=== PATIENT | female | born 1960 | race American Indian/Alaskan Native ===

== ENCOUNTER 2016-10-25 00:18 | Emergency (ER) | payer BC ==
[2016-10-25 01:41] LABS: Basophils % (Auto) 0.4 % (0.0-1.8); Eosinophils % (Auto) 1.2 % (0.0-4.3); Hematocrit 39.2 % (30.3-42.9); Hemoglobin 12.7 gm/dl (10.1-14.3); Mean Corpuscular HGB Conc 32 % (30-34); Mean Corpuscular Hemoglobin 28 pg (28-32); Mean Corpuscular Volume 87 fl (79-97); Platelet Count 195 K/mm3 (140-440); Red Blood Count 4.52 M/mm3 (3.65-5.03); White Blood Count 7.5 K/mm3 (4.5-11.0)
[2016-10-25 01:50] LABS: Anion Gap 18 mmol/L; BUN/Creatinine Ratio 24.44; Blood Urea Nitrogen 22 mg/dL (7-17); Calcium 8.8 mg/dL (8.4-10.2); Carbon Dioxide 23 mmol/L (22-30); Glucose 97 mg/dL (65-100); Potassium 3.7 mmol/L (3.6-5.0); Sodium 136 mmol/L (137-145)
[2016-10-25 03:34] VITALS: BP 131/82
== END 2016-10-25 03:32 | disposition left against medical advice (07) ==
LOC: ED 00:18
DX: R07.9 Chest pain, unspecified (principal); I10 Essential (primary) hypertension; E78.5 Hyperlipidemia, unspecified; Z53.21 Procedure and treatment not carried out due to patient leaving prior to being seen by health care provider
CPT/HCPCS: 36415; 80048; 84484; 85025; 93005; 93010

== ENCOUNTER 2019-09-12 19:39 | Emergency (ER) | payer SELFPAY ==
--- NOTE | 2019-09-12 20:24 | XRay Report ---
CHEST 2 VIEWS INDICATION / CLINICAL INFORMATION: Chest Pain. COMPARISON: 04/30/2010 FINDINGS: SUPPORT DEVICES: None. HEART / MEDIASTINUM: No significant abnormality. LUNGS / PLEURA: No significant pulmonary or pleural abnormality. No pneumothorax. ADDITIONAL FINDINGS: No significant additional findings. IMPRESSION: 1. No acute findings. Signer Name: Werner Hilliard MD Signed: 09/12/2019 8:19 PM Workstation Name: [id number]
[2019-09-12 20:47] LABS: Basophils # (Auto) 0.1 K/mm3 (0.0-0.1); Eosinophils # (Auto) 0.3 K/mm3 (0.0-0.4); Eosinophils % (Auto) 5.3 % (0.0-4.3); Hematocrit 39.1 % (30.3-42.9); Hemoglobin 12.8 gm/dl (10.1-14.3); Lymphocytes # (Auto) 2.9 K/mm3 (1.2-5.4); Lymphocytes % (Auto) 47.5 % (13.4-35.0); Mean Corpuscular HGB Conc 33 % (30-34); Mean Corpuscular Volume 87 fl (79-97); Monocytes # (Auto) 0.3 K/mm3 (0.0-0.8); Monocytes % (Auto) 4.6 % (0.0-7.3); Platelet Count 281 K/mm3 (140-440); Red Blood Count 4.49 M/mm3 (3.65-5.03); Red Cell Distribution Width 14.8 % (13.2-15.2)
[2019-09-12 21:39] LABS: BUN/Creatinine Ratio 21; Blood Urea Nitrogen 19 mg/dL (7-17); Calcium 9.2 mg/dL (8.4-10.2); Hemolysis Index 37
[2019-09-13] MEDS ORDERED: ALUM-MAG HYDROXIDE-SIMETHICONE 200-200-20MG/5ML ORAL LIQD 30 ML PO ONE (00:17)
[2019-09-13] MEDS ORDERED: ASPIRIN 325 MG TAB PO ONE (00:17)
[2019-09-13] MEDS ORDERED: FAMOTIDINE 20 MG TAB PO ONE (00:17)
[2019-09-13] MEDS ORDERED: LIDOCAINE VISCOUS 2% 15 ML ORAL LIQD PO ONE (00:18)
--- NOTE | 2019-09-13 01:37 | Emergency Department Report ---
ED Chest Pain HPI - General Chief Complaint: Chest Pain Stated Complaint: CHEST/NECK/RT SHOULDER PAIN Source: patient Mode of arrival: Ambulatory Limitations: No Limitations - History of Present Illness Initial Comments: Patient is a 59-year-old -[place] female with no past medical history except hypertension, and who does not smoke cigarettes, does not drink alcohol or use illegal drugs presents to the ED with acute onset persistent epigastric pain that radiates to the substernal area and to her throat with a burning sensation persistently for the last 4 days. Patient states that the pain and the discomfort is worse with food or when she lays down to sleep at night. Patient states that the pain is pressure-like with a burning sensation and discomfort that radiates with a burning sensation from the epigastric area to her substernal chest and to her throat. Patient denies dizziness, fever, chills, cough, shortness of breath, nausea and vomiting, diarrhea, headache, neck pain, change in vision, syncope, palpitations or traumatic injury and heavy lifting. MD Complaint: chest pain -: Sudden, days(s) (4) Onset: after eating, awoke with symptoms Pain Location: substernal, epigastric Pain Radiation: none Severity: moderate Severity scale (0 -10): 4 Quality: pressure Consistency: constant Improves With: nothing Worsens With: eating re: denies: nausea, vomting, diaphoresis, dyspnea, sense of impending doom Other Symptoms: denies: cough, fever, syncope, rash, acid taste in mouth, leg swelling, palpitations, burping Treatments Prior to Arrival: none Aspirin use within the Past 7 Days: (1) Yes - Related Data On Oral Contraceptives: No Previous Rx's Medication Instructions Recorded Last Taken Type HYDROcodone/APAP 10-325 [[place] 1 each PO Q6HR PRN #20 tablet 12/10/13 Unknown Rx 10-325 mg TAB] Sulfamethoxazole/Trimethoprim 1 each PO Q12H #20 tablet 12/10/13 Unknown Rx [Bactrim Ds] Famotidine [Pepcid] 20 mg PO Q12H #60 tablet 09/13/19 Unknown Rx Ondansetron [Zofran Odt] 4 mg PO Q6HR PRN #15 tab.rapdis 09/13/19 Unknown Rx Allergies Allergy/AdvReac Type Severity Reaction Status Date / Time No Known Allergies Allergy Unverified 12/10/13 08:56 Heart Score - HEART Score History: Slightly suspicious EKG: Normal Age: 45-65 Risk factors: 1-2 risk factors Troponin: < normal limit HEART Score: 2 ED Review of Systems ROS: Stated complaint: CHEST/NECK/RT SHOULDER PAIN Other details as noted in HPI Constitutional: denies: chills, fever Eyes: denies: eye pain, eye discharge, vision change ENT: denies: ear pain, throat pain Respiratory: denies: cough, shortness of breath, wheezing Cardiovascular: chest pain (substernal). denies: palpitations Endocrine: no symptoms reported Gastrointestinal: abdominal pain (epigastric). denies: nausea, vomiting, diarrhea Genitourinary: denies: urgency, dysuria, frequency, hematuria, discharge Musculoskeletal: denies: back pain, joint swelling, arthralgia Skin: denies: rash, lesions Neurological: denies: headache, weakness, paresthesias Psychiatric: denies: anxiety, depression Hematological/Lymphatic: denies: easy bleeding, easy bruising ED Past Medical Hx - Past Medical History Previous Medical History?: Yes Hx Hypertension: Yes Additional medical history: Hyperlipidemia - Surgical History Additional Surgical History: tubal ligation, partial hysterectomy - Social History Smoking Status: Never Smoker Substance Use Type: None - Medications Home Medications: Home Medications Medication Instructions Recorded Confirmed Last Taken Type HYDROcodone/APAP 10-325 [[place] 1 each PO Q6HR PRN #20 tablet 12/10/13 Unknown Rx 10-325 mg TAB] Sulfamethoxazole/Trimethoprim 1 each PO Q12H #20 tablet 12/10/13 Unknown Rx [Bactrim Ds] Famotidine [Pepcid] 20 mg PO Q12H #60 tablet 09/13/19 Unknown Rx Ondansetron [Zofran Odt] 4 mg PO Q6HR PRN #15 tab.rapdis 09/13/19 Unknown Rx ED Physical Exam - General Limitations: No Limitations General appearance: alert, in no apparent distress - Head Head exam: Present: atraumatic, normocephalic, normal inspection - Eye Eye exam: Present: normal appearance, PERRL, EOMI Pupils: Present: normal accommodation - ENT ENT exam: Present: normal exam, normal orophraynx, mucous membranes moist, TM's normal bilaterally, normal external ear exam - Neck Neck exam: Present: normal inspection, full ROM. Absent: tenderness, lymphadenopathy - Respiratory Respiratory exam: Present: normal lung sounds bilaterally. Absent: respiratory distress, wheezes, rales, chest wall tenderness, accessory muscle use, prolonged expiratory - Cardiovascular Cardiovascular Exam: Present: regular rate, normal rhythm, normal heart sounds. Absent: systolic murmur, diastolic murmur, rubs, gallop - GI/Abdominal GI/Abdominal exam: Present: soft, normal bowel sounds. Absent: tenderness, guarding, hyperactive bowel sounds, hypoactive bowel sounds, mass - Extremities Exam Extremities exam: Present: normal inspection, full ROM, normal capillary refill - Back Exam Back exam: Present: normal inspection, full ROM. Absent: tenderness, CVA tenderness (R), muscle spasm, paraspinal tenderness - Neurological Exam Neurological exam: Present: alert, oriented X3, CN II-XII intact, normal gait, reflexes normal - Psychiatric Psychiatric exam: Present: normal affect, normal mood - Skin Skin exam: Present: warm, dry, intact, normal color. Absent: rash ED Course Vital Signs 09/12/19 20:00 Temperature 98.1 F Pulse Rate 78 Respiratory 18 Rate Blood Pressure 112/74 O2 Sat by Pulse 99 Oximetry RUDOLPH score - Rudolph Score Age > 65: (0) No Aspirin use within the Past 7 Days: (0) No 3 or more CAD Risk Factors: (0) No 2 or more Angina events in past 24 hrs: (0) No Known CAD with more than 50% Stenosis: (0) No Elevated Cardiac Markers: (0) No ST Deviation Greater than 0.5mm: (0) No RUDOLPH Score: 0 ED Medical Decision Making - Lab Data Result diagrams: 09/12/19 20:29 09/12/19 20:29 - EKG Data EKG shows normal: sinus rhythm Rate: normal - EKG Data Interpretation: normal EKG 09/13/19 02:06 The EKG shows normal sinus rhythm with a ventricular rate of [address] or T wave abnormalities. - Radiology Data Radiology results: report reviewed, image reviewed Chest x-ray shows no acute cardiopulmonary abnormalities or pneumonitis - Medical Decision Making This is a 59-year-old female with a history of hypertension who presented to the ED with complaint of acute onset epigastric pain that radiates to the substernal chest and throat for the last 4 days. In the ED, patient is alert and oriented x3 and is not in distress with normal vital signs. The patient was treated in the ED with GI cocktail, Pepcid and aspirin. The EKG shows normal sinus rhythm with ventricular rate of 79 beats per minute and no ST or T wave abnormalities. Chest x-ray shows no acute cardiopulmonary abnormalities or pneumonitis. All lab test results were reviewed and are all nonactionable including initial and 2-hour troponin levels. Based on the patient's history and physical exam findings, the patient's heart score is 2 and is PERC negative per Wells criteria. On reevaluation, patient's pain is well controlled medications. The patient symptoms are likely due to GERD complications causing the chest wall discomfort with a burning sensation and also worsening with food intake. Other differential diagnosis were considered including PE, coronary artery disease, pneumonia, bronchitis, gastritis, gastroenteritis, and neoplasm. Patient was discharged home on antacids and antiemetics and was advised to follow-up with her primary care physician in 5 to 7 days for reevaluation or return to the ED immediately if symptoms get worse. - Differential Diagnosis CAD; Pneumonia; Bronchitis; GERD; Gastritis; Gastroenteritis; Neoplasm Critical care attestation.: If time is entered above; I have spent that time in minutes in the direct care of this critically ill patient, excluding procedure time. ED Disposition Clinical Impression: Substernal chest pain, Acute epigastric pain GERD (gastroesophageal reflux disease) Qualifiers: Esophagitis presence: without esophagitis Qualified Code(s): K21.9 - Gastro- esophageal reflux disease without esophagitis Disposition: - TO HOME OR SELFCARE Is pt being admited?: No Does the pt Need Aspirin: No Condition: Stable Instructions: Chest Pain (ED), Gastroesophageal Reflux Disease (ED) Additional Instructions: All your lab test results are unremarkable including EKG and chest x-ray. Your symptoms are likely due to GERD or acid reflux. Therefore take medications with food, drink plenty of fluids and follow-up with your primary care physician in 3 to 5 days for reevaluation. Return to the ED immediately if symptoms get worse. Prescriptions: Famotidine [Pepcid] 20 mg PO Q12H #60 tablet Ondansetron [Zofran Odt] 4 mg PO Q6HR PRN #15 tab.rapdis PRN Reason: Nausea Referrals: OLMAN PHAN MD [Staff Physician] - 3-5 Days Time of Disposition: 01:38 Print Language: GUINEAN
[2019-09-13 02:27] VITALS: BP 117/63
== END 2019-09-13 02:26 | disposition home or self-care (01) ==
LOC: ED 19:39
DX: K21.9 Gastro-esophageal reflux disease without esophagitis (principal); R07.89 Other chest pain; R10.13 Epigastric pain; M25.511 Pain in right shoulder; M54.2 Cervicalgia; E78.5 Hyperlipidemia, unspecified; I10 Essential (primary) hypertension; Z79.899 Other long term (current) drug therapy; Z98.51 Tubal ligation status; Z90.710 Acquired absence of both cervix and uterus
CPT/HCPCS: 36415; 71046; 80048; 84484; 85025; 93005; 93010